=== PATIENT | female | born 1945 | race Caucasian/White ===

== ENCOUNTER → 2021-06-05 | Outpatient (CLI) | payer MEDICARE | END | disposition home or self-care (01) | LOC: RAH 14:35 | PROVIDERS: ATTEND Family Medicine | DX: R06.09 Other forms of dyspnea (principal) | CPT/HCPCS: 71046 ==

== ENCOUNTER → 2025-05-31 | Outpatient (CLI) | payer MEDICARE ==
--- NOTE | 2025-05-31 19:51 | HMCIMG ---
EXAM: US Duplex Bilateral Carotid and Vertebral Arteries. CLINICAL HISTORY: dizziness and giddiness TECHNIQUE: Real-time ultrasound scan of the bilateral carotid and vertebral arteries, 2-D holden scale, with color Doppler flow and spectral waveform analysis. COMPARISON: None provided. FINDINGS: RIGHT COMMON CAROTID ARTERY: No occlusion or significant stenosis. RIGHT INTERNAL CAROTID ARTERY: No occlusion or significant stenosis. RIGHT EXTERNAL CAROTID ARTERY: No occlusion or significant stenosis. RIGHT VERTEBRAL ARTERY: Antegrade flow. RIGHT ICA/CCA RATIO: Within normal limits. LEFT COMMON CAROTID ARTERY: No occlusion or significant stenosis. LEFT INTERNAL CAROTID ARTERY: No occlusion or significant stenosis. LEFT EXTERNAL CAROTID ARTERY: No occlusion or significant stenosis. LEFT VERTEBRAL ARTERY: Antegrade flow. LEFT ICA/CCA RATIO: Within normal limits. SOFT TISSUES: No incidental abnormalities. IMPRESSION: No hemodynamically significant stenosis by NASCET criteria. /[place]
== END | disposition home or self-care (01) ==
LOC: RAH 11:02
PROVIDERS: ATTEND Family Medicine
DX: R42 Dizziness and giddiness (principal); I10 Essential (primary) hypertension; E78.2 Mixed hyperlipidemia; G83.10 Monoplegia of lower limb affecting unspecified side; G45.9 Transient cerebral ischemic attack, unspecified
CPT/HCPCS: 93880